=== PATIENT | female | born 1990 | race Two or more races ===

== ENCOUNTER 2022-05-26 18:16 | Emergency (ER) | payer MEDICAID, OTHER ==
[~2022-05-26] VITALS: Ht 167.6 cm; Wt 79.5 kg
[2022-05-26 18:23] VITALS: BP 120/71
[2022-05-26 19:02] LABS: Urine Bacteria NONE SEEN /hpf (None Seen); Urine Blood Negative /uL (Negative); Urine Specific Gravity 1.019 (1.001-1.035); Urine WBC 1 /hpf (0 - 5)
[2022-05-27] MEDS ORDERED: MET075VC VG (04:02)
== END 2022-05-27 04:49 | disposition left against medical advice (07) ==
LOC: ER 18:16
DX: N76.0 Acute vaginitis (principal); Z53.29 Procedure and treatment not carried out because of patient's decision for other reasons
CPT/HCPCS: 81001

== ENCOUNTER 2023-02-12 13:14 | Emergency (ER) | payer MEDICAID ==
[~2023-02-12] VITALS: Ht 167.6 cm; Wt 89.7 kg
[~2023-02-12 13:14] MED LIST: MET075VC VG
[2023-02-12 13:47] VITALS: BP 94/59; PULSE 104; RESP 18
[2023-02-12 22:28] LABS: Urine Bacteria NONE SEEN /hpf (None Seen); Urine Blood Negative /uL (Negative); Urine Clarity HAZY (Clear); Urine Color Yellow (Yellow); Urine Mucus FEW (None Seen); Urine Protein, UAD 1+ (Negative); Urine Specific Gravity 1.024 (1.001-1.035); Urine Urobilinogen Normal (Negative); Urine WBC 4 /hpf (0 - 5); Urine pH 6.5 (5.0-8.0)
[2023-02-12 22:30] VITALS: O2SAT 97
== END 2023-02-12 22:14 | disposition left against medical advice (07) ==
LOC: ER 13:14
DX: O26.892 Other specified pregnancy related conditions, second trimester (principal); S33.5XXA Sprain of ligaments of lumbar spine, initial encounter; Z3A.24 24 weeks gestation of pregnancy; V89.2XXA Person injured in unspecified motor-vehicle accident, traffic, initial encounter; Y93.89 Activity, other specified; Y92.89 Other specified places as the place of occurrence of the external cause; Y99.8 Other external cause status
CPT/HCPCS: 76805; 81001